=== PATIENT | male | born 1990 | race Two or more races ===

== ENCOUNTER 2020-05-27 07:53 | Emergency (ER) | payer OTHER ==
[~2020-05-27] VITALS: Ht 172.7 cm; Wt 77.3 kg
--- NOTE | 2020-05-27 08:14 | PHYS DOC ---
Past Medical History Past Medical History: No Pertinent History Past Surgical History: No Surgical History Smoking Status: Current Some Day Smoker Alcohol Use: Occasionally Drug Use: None General Adult EDM: Chief Complaint: DIZZY/LIGHT HEADED HPI: HPI: Patient is a 29-year-old male presents with report of lightheadedness which started this morning. Patient reports sensation that he is going to pass out. Patient denies any loss of consciousness. Denies any fever or chills. Denies cough or chest pain. Denies nausea/vomiting/diarrhea. Review of Systems: Review of Systems: Constitutional: Denies fever or chills Eyes: Denies redness or eye pain HENT: Denies nasal congestion or sore throat Respiratory: Denies cough or shortness of breath Cardiovascular: Denies chest pain or palpitations GI: Denies abdominal pain, nausea, or vomiting : Denies dysuria or hematuria Musculoskeletal: Denies back pain or joint pain Integument: Denies rash or skin lesions Neurologic: Denies headache, focal weakness or sensory changes; reports ligh theadedness. Complete systems were reviewed and found to be within normal limits, except as documented in this note. Physical Exam: PE: Constitutional: Well developed, well nourished, no acute distress, non-toxic appearance HENT: Normocephalic, atraumatic Eyes: PERRL, EOMI, conjunctiva normal, no discharge, no nystagmus Neck: Normal range of motion, no tenderness, supple Lungs & Thorax: No respiratory distress, equal chest rise and fall Abdomen: Soft, no tenderness Skin: Warm, dry, no erythema, no rash Extremities: No tenderness, ROM intact, no edema Neurologic: Alert and oriented X 3, normal motor function, normal sensory function, no focal deficits noted,, cerebellar function intact Psychologic: Affect normal, judgment normal EKG: EKG: @0819 NSR at 86bpm, NO ST elevation, QRS 98ms, QT/QTc 332/400ms, nonspecific t- wave inversion noted to III and V2. Radiology/Procedures: Radiology/Procedures: [] Course & Med Decision Making: Course & Med Decision Making Pertinent Lab studies reviewed. (See chart for details) Patient presents with report of lightheadedness which occurred this morning. Denies any trauma. Denies fever or chills. Patient neurologically intact. EKG stable. Labs obtained and posted to chart. IV fluid hydration given. Orthostatic vital signs stable. Patient stable for discharge with outpatient follow-up with PCP. Discussed findings and plan with patient, who acknowledges understanding and agreement. Hunter Disclaimer: Hunter Disclaimer: This electronic medical record was generated, in whole or in part, using a voice recognition dictation system. Departure Departure Impression: Primary Impression: Near syncope Disposition: 01 DC HOME SELF CARE/HOMELESS Condition: STABLE Patient Instructions: Near-Syncope, [id number] Additional Instructions: Increase fluid hydration. NIHSS Stroke Scale NIH Stroke Scale: NIH Stroke Scale Response (Comments) Value Level of Consciousness: 0 Alert/Responsive 0 LOC Questions: 0 Answers both correctly 0 LOC Commands: 0 Performs both tasks 0 Best Gaze: 0 Normal 0 Visual: 0 No visual loss 0 Facial Palsy: 0 Normal, symmetrical 0 Motor - Left Arm 0 No drift 0 Motor - Right Arm 0 No drift 0 Motor - Left Leg 0 No drift 0 Motor: Right Leg 0 No drift 0 Limb Ataxia: 0 Absent 0 Sensory: 0 No loss 0 Best Language: 0 Normal 0 Dysathria: 0 Normal 0 Extinction and Inattention: 0 Normal 0 Total 0 NOLANNIKITA DO May 27, 2020 08:14
[2020-05-27] MEDS ORDERED: IV NORMAL SALINE 1000ML BAG 1,000 ML IV ONE (08:15)
[2020-05-27 08:28] LABS: BASO % 0 % (0-3); EOS # 0.1 x10^3/uL (0.0-0.7); EOS % 2 % (0-3); HEMATOCRIT 40.5 % (39.0-53.0); HEMOGLOBIN 13.6 g/dL (13.0-17.5); LYMPH # 2.5 x10^3/uL (1.0-4.8); LYMPH % 33 % (24-48); MEAN CORPUSCULAR HEMOGLOBIN 28 pg (25-35); MEAN CORPUSCULAR HGB CONC 34 g/dL (31-37); MEAN CORPUSCULAR VOLUME 85 fL (79-100); MONO # 0.5 x10^3/uL (0.0-1.1); MONO % 7 % (0-9); NEUT # 4.3 x10^3/uL (1.8-7.7); NEUT % 58 % (31-73); PLATELET COUNT 237 x10^3/uL (140-400); RED BLOOD COUNT 4.79 x10^6/uL (4.30-5.70); RED CELL DISTRIBUTION WIDTH 13.1 % (11.5-14.5); WHITE BLOOD COUNT 7.5 x10^3/uL (4.0-11.0)
[2020-05-27 08:28] LABS: BILIRUBIN,URINE NEGATIVE (NEG); CLARITY,URINE CLEAR; COLOR,URINE YELLOW; NITRITE,URINE NEGATIVE (NEG); PH,URINE 5.5 (<5.0-8.0); PROTEIN,URINE NEGATIVE (NEG-TRACE); UROBILINOGEN,URINE 0.2 mg/dL (0.2 mg/dL)
[2020-05-27 08:48] LABS: CALCIUM 8.3 mg/dL (8.5-10.1); CREATININE 0.8 mg/dL (0.7-1.3); GFR 115.1; POTASSIUM 3.7 mmol/L (3.5-5.1)
[2020-05-27 08:56] LABS: ALBUMIN 4.2 g/dL (3.4-5.0); ALBUMIN/GLOBULIN RATIO 1.2 (1.0-1.7); MAGNESIUM 2.1 mg/dL (1.8-2.4); TOTAL BILIRUBIN 0.3 mg/dL (0.2-1.0); TOTAL PROTEIN 7.8 g/dL (6.4-8.2)
[2020-05-27 08:58] LABS: WBC,URINE RARE /HPF (0-4)
[2020-05-27 08:59] LABS: BACTERIA,URINE FEW /HPF (0-FEW); RBC,URINE 0 /HPF (0-2)
[2020-05-27 09:11] LABS: CREATINE KINASE 116 U/L (39-308)
[2020-05-27 09:38] VITALS: BP 113/74
--- NOTE | 2020-05-27 17:26 | EKG ---
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
== END 2020-05-27 09:45 | disposition home or self-care (01) ==
LOC: ER 07:53
DX: R55 Syncope and collapse (principal); F17.200 Nicotine dependence, unspecified, uncomplicated
CPT/HCPCS: 36415; 80053; 81001; 82553; 83735; 84484; 85025; 93005; 96360; 99284; J7030

== ENCOUNTER → 2021-05-04 | Outpatient (CLI) | payer OTHER ==
[2021-05-04 09:19] LABS: BASO % 0 % (0-3); EOS # 0.1 x10^3/uL (0.0-0.7); EOS % 2 % (0-3); HEMATOCRIT 39.5 % (39.0-53.0); HEMOGLOBIN 13.4 g/dL (13.0-17.5); LYMPH # 2.6 x10^3/uL (1.0-4.8); LYMPH % 39 % (24-48); MEAN CORPUSCULAR HEMOGLOBIN 29 pg (25-35); MEAN CORPUSCULAR HGB CONC 34 g/dL (31-37); MEAN CORPUSCULAR VOLUME 85 fL (79-100); MONO # 0.4 x10^3/uL (0.0-1.1); MONO % 7 % (0-9); NEUT # 3.5 x10^3/uL (1.8-7.7); NEUT % 52 % (31-73); PLATELET COUNT 262 x10^3/uL (140-400); RED BLOOD COUNT 4.67 x10^6/uL (4.30-5.70); WHITE BLOOD COUNT 6.7 x10^3/uL (4.0-11.0)
[2021-05-04 09:28] LABS: ALBUMIN 4.1 g/dL (3.4-5.0); ALBUMIN/GLOBULIN RATIO 1.1 (1.0-1.7); CALCIUM 8.5 mg/dL (8.5-10.1); CREATININE 0.8 mg/dL (0.7-1.3); GFR 114.3; POTASSIUM 4.2 mmol/L (3.5-5.1); TOTAL BILIRUBIN 0.3 mg/dL (0.2-1.0)
--- NOTE | 2021-05-04 11:35 | RAD ---
XR LUMBAR SPINE 4+V History: Reason: LOWER BACK PAIN / Spl. Instructions: / History: Technique: 5 views lumbar spine. Comparison: None. Findings: Normal vertebral body height and alignment. No acute fracture. Impression: 1. No acute osseous abnormality. Electronically signed by: Ramez Ramsay DO (05/04/2021 11:33 AM) [id number]
--- NOTE | 2021-05-04 11:36 | RAD ---
XR CERVICAL SPINE 2-3V History: Reason: NECK PAIN / Spl. Instructions: / History: Technique: 3 views cervical spine. Comparison: None. Findings: Straightening of the cervical spine. Normal vertebral body height. No acute fracture. Normal alignmen t C1 on C2. Mild disc space narrowing C5-C6 and C6-C7. Impression: 1. Minimal cervical spondylosis. Electronically signed by: Ramez Ramsay DO (05/04/2021 11:34 AM) [id number]
== END ==
LOC: LAB 08:21
PROVIDERS: ATTEND Family Medicine
DX: Z00.00 Encounter for general adult medical examination without abnormal findings (principal); M48.02 Spinal stenosis, cervical region; M54.50 Low back pain, unspecified; M54.2 Cervicalgia
CPT/HCPCS: 36415; 72040; 72110; 80053; 80061; 85025

== ENCOUNTER → 2021-06-04 | Day surgery (SDC) | payer OTHER ==
[~2021-06-04] VITALS: Ht 175.3 cm; Wt 82.7 kg
[~2021-06-04] MED LIST: IV RINGERS,LACTATED 1000ML 1,000 ML IV SCH; LIDOCAINE 2% PF 5 ML VIAL. ONE; PROPOFOL 10 MG/ML (20ML) VIAL. IV ONE
[2021-06-04 07:16] VITALS: BP 130/81
--- NOTE | 2021-06-04 08:07 | CONS ---
DATE OF CONSULTATION: 06/04/2021 HISTORY OF PRESENT ILLNESS: A 30-year-old male with past medical history is noncontributory is seen for rectal bleeding accompanied by constipation, blood filling the toilet that is bright red in nature. Has had several years' duration of bleeding which has been painless in nature. Family history is unrevealing for inflammatory bowel disease or colon cancer. No extraintestinal manifestations of inflammatory bowel disease or colon cancer present at this time. With continued issues and bleeding, requests additional evaluation. PAST MEDICAL HISTORY: Noncontributory. ALLERGIES: None. MEDICATIONS: None. FAMILY HISTORY: Significant for diabetes in multiple family members, hypertension with grandfather. SOCIAL HISTORY: He is a social drinker, former smoker. PAST SURGICAL HISTORY: Noncontributory. REVIEW OF SYSTEMS: Per records. PHYSICAL EXAMINATION: GENERAL: Reveals a well-nourished, well-developed male who is alert, cooperative, in no acute distress. VITAL SIGNS: Temperature 97.7, pulse 82, respiratory rate 20, blood pressure is 125/75. LUNGS: Clear. CARDIOVASCULAR: Reveals an S1, S2, without S3, S4 or appreciable murmur. ABDOMEN: Reveals a soft abdomen, normal bowel sounds, without appreciable hepatosplenomegaly. EXTREMITIES: Reveals no cyanosis, clubbing or edema. IMPRESSION AND PLAN: Rectal bleeding, etiology is to be determined. Differential includes colon polyps, colon cancer, inflammatory bowel disease, hemorrhoids, fissures, diverticular disease and/or AVMs. Therefore, recommend colonoscopy to further assess. Risks and benefits have been previously discussed including risk of hemorrhage and perforation and he is willing to proceed. TRNIIDAD RAY: [place] TID: [id number]
[2021-06-04 08:54] VITALS: BP 114/75
== END | disposition home or self-care (01) ==
LOC: ENDOS 06:58
PROVIDERS: ATTEND Internal Medicine Gastroenterology
DX: K62.5 Hemorrhage of anus and rectum (principal); K64.0 First degree hemorrhoids; K63.89 Other specified diseases of intestine; F17.210 Nicotine dependence, cigarettes, uncomplicated; Z79.899 Other long term (current) drug therapy; Z98.890 Other specified postprocedural states; Z82.49 Family history of ischemic heart disease and other diseases of the circulatory system; Z83.3 Family history of diabetes mellitus; Z72.89 Other problems related to lifestyle
CPT/HCPCS: 45378; J2704